=== PATIENT | female | born 1960 | race Caucasian/White ===

== ENCOUNTER 2017-04-13 07:03 | Day surgery (SDC) | payer OTHER ==
[2017-04-13] MEDS ORDERED: Lactated Ringers 1,000 ML PRIMARY IV ONE (07:10)
[2017-04-13] MEDS ORDERED: LIDOCAINE W/ SODIUM BICARB 0.5 ML SYR ONE (07:10)
[2017-04-13 07:30] VITALS: RESP 16
[2017-04-13] MEDS ORDERED: MIDAZOLAM 5 MG/1 ML ONE (07:56)
[2017-04-13] MEDS ORDERED: LIDOCAINE HCL/PF 2% (20 MG/ML) - 5 ML SYRINGE ONE (07:56)
[2017-04-13] MEDS ORDERED: LIDOCAINE 2% VISCOUS(20 MG/1 ML) - 15 ML UD CUP PO ONE (07:56)
[2017-04-13] MEDS ORDERED: fentaNYL Inj 100 MCG/2 ML VIAL ONE (07:56)
[2017-04-13] MEDS ORDERED: NALOXONE 0.4 MG/1 ML VIAL ONE (08:25)
--- NOTE | 2017-04-13 08:26 | GEN.OPNOTE ---
EGD Operative Note Surgery Date: 04/13/17 Preoperative Diagnosis: Dysphagia Postoperative Diagnosis: Dysphagia. Hiatal hernia Procedure: Esophagogastroduodenoscopy with esophageal dilation to 17 mm Surgeon: Juan Miguel Henry MD Anesthesia Provider: Amrit Dennis CRNA Anesthesia Type: MAC Indications: Patient is having recurrent dysphagia. She is feeling food stick in the distal esophagus. She's also, developed this pain that she has to cough to clear her throat Findings: Esophagus: [employer] video EGD scope inserted in posterior pharynx. Guiding esophagus under direct visualization. Patient had what appeared be a floppy posterior pharynx but no actual pathology. Esophagus appeared be totally normal. GE Junction : GE junction 38 cm from incisors Fundus : Scope retroflexed revealing the fundus. Side a small hiatal hernia patient had normal-appearing fundus Body : Body is free from disease. Prepyloric : Prepyloric area was normal Small Intestine : First second third portion the duodenum had no active pathology. The guidewires in place through the scope and the scope was removed. I progressively dilated the patient of the 17 mm with the bougie dilators A lubricated flexible upper endoscope was inserted and passed through the esophagus and stomach into the duodenum. Additional Details: Patient will get an upper GI x-ray to see how bad she is refluxing and Gaviscon up to level of the vocal cords
[2017-04-13 09:01] VITALS: TEMP 97.1
== END 2017-04-13 08:53 | disposition home or self-care (01) ==
LOC: SDSC 07:03
PROVIDERS: ATTEND Surgery
DX: R13.10 Dysphagia, unspecified (principal); K44.9 Diaphragmatic hernia without obstruction or gangrene
CPT/HCPCS: 43248; J2704; J3010; J2001; J2250; J7120